=== PATIENT | female | born 1980 | race Caucasian/White ===

== ENCOUNTER 2018-11-21 05:38 | Emergency (ER) | payer MEDICAID ==
[~2018-11-21] VITALS: Ht 154.9 cm; Wt 83.1 kg
[2018-11-21] MEDS ORDERED: morphine 4 MG/ML inj SYRINge IV ONE ×2 (06:40→09:15)
[2018-11-21] MEDS ORDERED: normal saline 1000ML IV soln IVB ONE (06:40)
[2018-11-21 06:45] LABS: CLARITY,URINE CLOUDY (Clear); COLOR,URINE YELLOW (Yellow); GLUCOSE, URINE NEGATIVE (Neg); KETONES,URINE NEGATIVE (Neg); LEUKOCYTE ESTERASE ,URINE NEGATIVE (Neg); NITRITES, URINE NEGATIVE (Neg); OCCULT BLOOD,URINE LARGE (Neg); PROTEIN,URINE NEGATIVE (Neg); UROBILINOGEN,URINE 0.2 E.U/dL (0.2-1.0)
[2018-11-21 06:52] LABS: UA COLLECTION TYPE VOIDED
[2018-11-21 06:54] LABS: BASOPHILS % (AUTO) 0.5 % (0-1); EOSINOPHILS # (AUTO) 0.1 X10'3 (0-0.9); EOSINOPHILS % (AUTO) 1.4 % (0-6); HEMOGLOBIN 13.4 g/dl (12.0-16.0); LYMPHOCYTES # (AUTO) 0.9 X10'3 (1.1-4.8); MEAN CORPUSCULAR HEMOGLOBIN 30.1 PG (27.0-31.0); MEAN CORPUSCULAR HGB CONC 33.4 g/dL (33.0-36.5); MEAN CORPUSCULAR VOLUME 90.3 FL (78-98); MEAN PLATELET VOLUME 7.6 FL (7.4-10.4); MONOCYTES # (AUTO) 0.5 X10'3 (0-0.9); MONOCYTES % (AUTO) 8.7 % (2-12); NEUTROPHILS # (AUTO) 4.7 X10'3 (1.8-7.7); NEUTROPHILS % (AUTO) 75.4 % (42-75); PLATELET COUNT 255 X10'3 (140-440); RED BLOOD COUNT 4.43 X10'6 (4.20-5.60); RED CELL DISTRIBUTION WIDTH 14.1 % (11.5-14.5); WHITE BLOOD COUNT 6.2 X10'3 (4.5-11.0)
[2018-11-21 06:58] LABS: ALANINE AMINOTRANSFERASE 25 U/L (12-78); ALBUMIN 3.7 G/DL (3.4-5.0); ALKALINE PHOSPHATASE 50 IU/L (46-116); ANION GAP 8 (8-16); ASPARTATE AMINO TRANSFERASE 22 U/L (10-37); BILIRUBIN,TOTAL 0.4 MG/DL (0.1-1.0); BLOOD UREA NITROGEN 15 MG/DL (7-18); BUN/CREATININE RATIO 19.2 (6.6-38.0); CHLORIDE 105 MMOL/L (99-107); CREATININE 0.78 MG/DL (0.40-0.90); GLUCOSE 87 MG/DL (70-104); LIPASE 124 U/L (73-393); SODIUM 142 MMOL/L (135-145); TOTAL CARBON DIOXIDE 29.3 MMOL/L (24-32); TOTAL PROTEIN 7.3 G/DL (6.4-8.2); eGFR 84 ML/MIN
[2018-11-21 06:59] LABS: RBC,URINE TNTC /HPF (0-2); WBC,URINE 0-4 /HPF (0-4)
[2018-11-21 07:00] LABS: BACTERIA,URINE 2+ /HPF (Neg); MUCUS STRANDS MODERATE /LPF (Neg); SQUAMOUS EPITHELIAL CELL,UR MANY /LPF (FEW); YEAST FEW /HPF (NEGATIVE)
--- NOTE | 2018-11-21 08:24 | NUR ---
PT HAVING BEDSIDE ULTRASOUND DONE AT PRESENT TIME
[2018-11-21] MEDS ORDERED: CefTRIAXone 2gm/D5W 50ml 50 ML IV ONE (09:05)
[2018-11-21] MEDS ORDERED: phenazopyridine 100mg tablet PO ONE (09:05)
[2018-11-21] MEDS ORDERED: PHEN-824 PO (09:14)
[2018-11-21] MEDS ORDERED: CEPH250T PO (09:14)
[2018-11-21] MEDS ORDERED: HYDR-4383 PO (09:14)
[2018-11-21 10:13] VITALS: BP 124/84
== END 2018-11-21 10:14 | disposition home or self-care (01) ==
LOC: ER 05:39
DX: N30.90 Cystitis, unspecified without hematuria (principal); F15.90 Other stimulant use, unspecified, uncomplicated; Z90.49 Acquired absence of other specified parts of digestive tract; Z90.710 Acquired absence of both cervix and uterus; Z98.51 Tubal ligation status; Z56.0 Unemployment, unspecified; Z88.6 Allergy status to analgesic agent; Z88.8 Allergy status to other drugs, medicaments and biological substances
CPT/HCPCS: 36415; 76700; 80053; 81001; 83690; 85025; 96365; 96375; 96376; 99284; J0696; J2270; J7030

== ENCOUNTER 2019-08-03 08:31 | Emergency (ER) | payer MEDICAID ==
[~2019-08-03] VITALS: Ht 156.2 cm; Wt 79.5 kg
[~2019-08-03 08:31] MED LIST: HYDR-4383 PO; PHEN-824 PO
[2019-08-03] MEDS ORDERED: normal saline 1000ML IV soln IVB ONE (09:00)
[2019-08-03 09:09] LABS: BASOPHILS % (AUTO) 0.2 % (0-1); EOSINOPHILS % (AUTO) 0.3 % (0-6); HEMATOCRIT 39.3 % (35.0-45.0); HEMOGLOBIN 13.3 g/dl (12.0-16.0); LYMPHOCYTES # (AUTO) 0.7 X10'3 (1.1-4.8); LYMPHOCYTES % (AUTO) 10.5 % (21-51); MEAN CORPUSCULAR HEMOGLOBIN 31.8 PG (27.0-31.0); MEAN CORPUSCULAR HGB CONC 33.9 g/dL (33.0-36.5); MEAN CORPUSCULAR VOLUME 93.6 FL (78-98); MEAN PLATELET VOLUME 7.4 FL (7.4-10.4); MONOCYTES # (AUTO) 0.5 X10'3 (0-0.9); MONOCYTES % (AUTO) 7.4 % (2-12); NEUTROPHILS # (AUTO) 5.2 X10'3 (1.8-7.7); NEUTROPHILS % (AUTO) 81.6 % (42-75); PLATELET COUNT 301 X10'3 (140-440); RED CELL DISTRIBUTION WIDTH 13.5 % (11.5-14.5); WHITE BLOOD COUNT 6.4 X10'3 (4.5-11.0)
[2019-08-03 09:18] LABS: URINE HCG NEGATIVE (NEG)
[2019-08-03 09:19] LABS: CLARITY,URINE SLIGHTLY CLOUDY (Clear); COLOR,URINE YELLOW (Yellow); GLUCOSE, URINE NEGATIVE (Neg); KETONES,URINE NEGATIVE (Neg); LEUKOCYTE ESTERASE ,URINE SMALL (Neg); NITRITES, URINE NEGATIVE (Neg); OCCULT BLOOD,URINE LARGE (Neg); PROTEIN,URINE NEGATIVE (Neg); UROBILINOGEN,URINE 0.2 E.U/dL (0.2-1.0)
[2019-08-03 09:21] LABS: UA COLLECTION TYPE CLN CATCH MIDSTREAM
[2019-08-03 09:24] LABS: BACTERIA,URINE 2+ /HPF (Neg); SQUAMOUS EPITHELIAL CELL,UR MANY /LPF (FEW); WBC,URINE 20-30 /HPF (0-4)
[2019-08-03 09:24] LABS: ALANINE AMINOTRANSFERASE 21 U/L (12-78); ALKALINE PHOSPHATASE 59 IU/L (46-116); ANION GAP 11 (8-16); ASPARTATE AMINO TRANSFERASE 25 U/L (10-37); BILIRUBIN,TOTAL 0.4 MG/DL (0.1-1.0); BLOOD UREA NITROGEN 9 MG/DL (7-18); BUN/CREATININE RATIO 11.5 (6.6-38.0); CALCIUM 8.8 MG/DL (8.5-10.1); CHLORIDE 105 MMOL/L (99-107); CREATININE 0.78 MG/DL (0.40-0.90); GLUCOSE 85 MG/DL (70-104); LIPASE 107 U/L (73-393); POTASSIUM 3.5 MMOL/L (3.5-5.1); SODIUM 143 MMOL/L (135-145); TOTAL CARBON DIOXIDE 26.7 MMOL/L (24-32); TOTAL PROTEIN 7.9 G/DL (6.4-8.2); eGFR 83 ML/MIN
[2019-08-03 09:25] LABS: RBC,URINE 50-100 /HPF (0-2)
--- NOTE | 2019-08-03 09:35 | NUR ---
PT TO CT
--- NOTE | 2019-08-03 09:47 | NUR ---
2 IV ATTEMPS NO SUCCESS. YINKA COLEMAN NOTIFIED. OK FOR PT TO DRINK 1,000 ML WATER.
[2019-08-03] MEDS ORDERED: ketorolac trometh inj. 60 MG/2 ML VIAL IM ONE (09:50)
[2019-08-03] MEDS ORDERED: HYDROcodone/acetaminophen 10/325mg tab PO ONE (09:55)
[2019-08-03] MEDS ORDERED: HYDR-4383 PO (10:42)
[2019-08-03] MEDS ORDERED: CEPH250T PO (10:42)
[2019-08-03] MEDS ORDERED: FLO0.4C PO (10:42)
[2019-08-03 10:55] VITALS: BP 133/78
== END 2019-08-03 10:56 | disposition home or self-care (01) ==
LOC: ER 08:31
DX: N39.0 Urinary tract infection, site not specified (principal); F32.9 Major depressive disorder, single episode, unspecified; F15.90 Other stimulant use, unspecified, uncomplicated; Z87.442 Personal history of urinary calculi; Z90.49 Acquired absence of other specified parts of digestive tract; Z98.890 Other specified postprocedural states; Z90.710 Acquired absence of both cervix and uterus; Z98.51 Tubal ligation status; Z56.0 Unemployment, unspecified; Z88.8 Allergy status to other drugs, medicaments and biological substances; Z79.899 Other long term (current) drug therapy
CPT/HCPCS: 36415; 74176; 80053; 81001; 81025; 83690; 85025; 99284; J1885

== ENCOUNTER 2019-08-06 05:28 | Inpatient (IN) | payer MEDICAID ==
[~2019-08-06] VITALS: Ht 154.9 cm; Wt 175.0 kg
[~2019-08-06 05:28] MED LIST changes: +CEPH250T PO; +FLO0.4C PO
[2019-08-06] MEDS ORDERED: ondansetron/PF 4mg/2ml inj IV ONE ×2 (05:50→07:45)
[2019-08-06] MEDS: morphine 4 MG/ML inj SYRINge IV PRN ×2 (06:16→08:47)
[2019-08-06 06:43] LABS: BASOPHILS % (AUTO) 0.7 % (0-1); EOSINOPHILS % (AUTO) 0.6 % (0-6); HEMATOCRIT 37.4 % (35.0-45.0); HEMOGLOBIN 12.9 g/dl (12.0-16.0); LYMPHOCYTES # (AUTO) 0.8 X10'3 (1.1-4.8); LYMPHOCYTES % (AUTO) 14.2 % (21-51); MEAN CORPUSCULAR HEMOGLOBIN 31.5 PG (27.0-31.0); MEAN CORPUSCULAR HGB CONC 34.4 g/dL (33.0-36.5); MEAN CORPUSCULAR VOLUME 91.7 FL (78-98); MEAN PLATELET VOLUME 7.4 FL (7.4-10.4); MONOCYTES # (AUTO) 0.5 X10'3 (0-0.9); MONOCYTES % (AUTO) 8.2 % (2-12); NEUTROPHILS # (AUTO) 4.2 X10'3 (1.8-7.7); NEUTROPHILS % (AUTO) 76.3 % (42-75); PLATELET COUNT 303 X10'3 (140-440); RED BLOOD COUNT 4.08 X10'6 (4.20-5.60); RED CELL DISTRIBUTION WIDTH 13.6 % (11.5-14.5); WHITE BLOOD COUNT 5.5 X10'3 (4.5-11.0)
[2019-08-06] MEDS ORDERED: HYDROcodone/acetaminophen 10/325mg tab PO ONE (06:45)
[2019-08-06 07:02] LABS: ALANINE AMINOTRANSFERASE 24 U/L (12-78); ALBUMIN 4.1 G/DL (3.4-5.0); ALBUMIN/GLOBULIN RATIO 1.1 (1.1-1.5); ALKALINE PHOSPHATASE 54 IU/L (46-116); ANION GAP 8 (8-16); ASPARTATE AMINO TRANSFERASE 22 U/L (10-37); BILIRUBIN,TOTAL 0.6 MG/DL (0.1-1.0); BLOOD UREA NITROGEN 12 MG/DL (7-18); BUN/CREATININE RATIO 13.5 (6.6-38.0); CHLORIDE 105 MMOL/L (99-107); CREATININE 0.89 MG/DL (0.40-0.90); GLUCOSE 88 MG/DL (70-104); LIPASE 84 U/L (73-393); POTASSIUM 3.4 MMOL/L (3.5-5.1); SODIUM 142 MMOL/L (135-145); TOTAL CARBON DIOXIDE 29.2 MMOL/L (24-32); TOTAL PROTEIN 7.7 G/DL (6.4-8.2); eGFR 71 ML/MIN
[2019-08-06 07:39] LABS: CLARITY,URINE CLEAR (Clear); COLOR,URINE YELLOW (Yellow); GLUCOSE, URINE NEGATIVE (Neg); KETONES,URINE NEGATIVE (Neg); LEUKOCYTE ESTERASE ,URINE NEGATIVE (Neg); NITRITES, URINE NEGATIVE (Neg); OCCULT BLOOD,URINE LARGE (Neg); PH,URINE 6.5 (4.8-8.0); PROTEIN,URINE TRACE mg/dl (Neg); UROBILINOGEN,URINE 0.2 E.U/dL (0.2-1.0)
[2019-08-06] MEDS ORDERED: fentaNYL/PF 50MCG/1 ML 2ML syringe IV ONE (07:45)
[2019-08-06 07:48] LABS: UA COLLECTION TYPE CLN CATCH MIDSTREAM
[2019-08-06 07:56] LABS: SQUAMOUS EPITHELIAL CELL,UR MANY /LPF (FEW)
[2019-08-06 07:58] LABS: YEAST FEW /HPF (NEGATIVE)
[2019-08-06 07:59] LABS: BACTERIA,URINE FEW /HPF (Neg); WBC,URINE 0-4 /HPF (0-4)
[2019-08-06] MEDS ORDERED: morphine 2 MG/ML inj. syringe IV PRN (08:45)
[2019-08-06] MEDS ORDERED: acetaminophen 325mg tablet PO PRN ×2 (08:45)
[2019-08-06] MEDS ORDERED: potassium CL 10mEq/100ml bag 100 ML IV PRN ×2 (08:45)
[2019-08-06] MEDS ORDERED: magnesium hydroxide 30ml (MOM) UD suspension PO PRN (08:45)
[2019-08-06] MEDS ORDERED: magnesium Cl slow-release 64mg tablet PO PRN (08:45)
[2019-08-06] MEDS ORDERED: magnesium 2GM in 50ml NS 50 ML IV PRN (08:45)
[2019-08-06] MEDS ORDERED: magnesium 4gm in 100ml NS 100 ML IV PRN (08:45)
[2019-08-06] MEDS ORDERED: potassium Cl 20 mEq SR tablet PO PRN (08:45)
[2019-08-06] MEDS ORDERED: mag hydrox/Alum hydrox/simeth 30ml oral suspension PO PRN (08:45)
--- NOTE | 2019-08-06 08:54 | NUR ---
Wong roa in EDM - 08/06/19 at 0855 by LUKASZ PT BEING DISCHARGED. WAKE PT. INSTRUCT PT TO CALL FOR RIDE HOME. PT USING HER CELL PHONE TO CALL NOW.
--- NOTE | 2019-08-06 09:17 | NUR ---
ATTEMPTED TO CALL REPORT. RN IN PT ROOM. WILL CALL BACK
--- NOTE | 2019-08-06 09:52 | NUR ---
Patient in room [facility]. I have received report from Mario OATES and had the opportunity to ask questions and assume patient care.
[2019-08-06] MEDS: normal saline 1000ml 1,000 ML IV SCH ×2 (10:03→10:04)
[2019-08-06] MEDS: potassium Cl 20 mEq SR tablet PO PRN ×3 (10:03→20:00)
[2019-08-06] MEDS: HYDROcodone/acetaminophen 5mg/325mg tablet PO PRN ×2 (10:14→17:37)
[2019-08-06] MEDS ORDERED: CEPH250C2 PO (10:33)
[2019-08-06] MEDS ORDERED: HYDR-3965 PO (10:33)
[2019-08-06] MEDS ORDERED: FLO0.4C PO (10:33)
[2019-08-06 10:35] VITALS: BP 129/84
[2019-08-06] MEDS: ondansetron/PF 4mg/2ml inj IV PRN ×2 (10:54→17:38)
[2019-08-06 11:00] VITALS: BP 122/68
[2019-08-06] MEDS ORDERED: tamsulosin 0.4mg capsule PO SCH (11:05)
[2019-08-06] MEDS: morphine 2 MG/ML inj. syringe IV PRN ×2 (14:08→20:00)
[2019-08-06 18:00] VITALS: BP 92/53
--- NOTE | 2019-08-06 18:36 | NUR ---
Patient in room [facility]. I have received report from JOSEPH OATES and had the opportunity to ask questions and assume patient care. Patient is resting in no apparent distress.
--- NOTE | 2019-08-06 19:33 | NUR ---
Problems reprioritized. Patient report given, questions answered & plan of care reviewed with PRUDENCE RN.
[2019-08-06] MEDS: K and/or MAG REPLACEMENT MC SCH (20:00)
[2019-08-06] MEDS: tamsulosin 0.4mg capsule PO SCH (20:33)
[2019-08-07] VITALS: BP 93/57
[2019-08-07] MEDS: morphine 2 MG/ML inj. syringe IV PRN ×5 (00:19→19:52)
[2019-08-07 04:55] LABS: ALBUMIN 3.1 G/DL (3.4-5.0); ANION GAP 9 (8-16); BLOOD UREA NITROGEN 8 MG/DL (7-18); BUN/CREATININE RATIO 13.1 (6.6-38.0); CALCIUM 8.1 MG/DL (8.5-10.1); CHLORIDE 107 MMOL/L (99-107); CREATININE 0.61 MG/DL (0.40-0.90); GLUCOSE 79 MG/DL (70-104); MAGNESIUM 1.8 MG/DL (1.5-2.4); POTASSIUM 3.4 MMOL/L (3.5-5.1); SODIUM 143 MMOL/L (135-145); TOTAL CARBON DIOXIDE 27.4 MMOL/L (24-32); eGFR > 90 ML/MIN
--- NOTE | 2019-08-07 06:29 | NUR ---
Problems reprioritized. Patient report given, questions answered & plan of care reviewed with Cary OATES.
[2019-08-07] MEDS: HYDROcodone/acetaminophen 5mg/325mg tablet PO PRN ×3 (06:56→21:40)
[2019-08-07 07:35] LABS: BASOPHILS % (AUTO) 0.4 % (0-1); EOSINOPHILS % (AUTO) 0.7 % (0-6); HEMOGLOBIN 11.5 g/dl (12.0-16.0); LYMPHOCYTES # (AUTO) 0.8 X10'3 (1.1-4.8); LYMPHOCYTES % (AUTO) 18.3 % (21-51); MEAN CORPUSCULAR HEMOGLOBIN 31.6 PG (27.0-31.0); MEAN CORPUSCULAR HGB CONC 33.9 g/dL (33.0-36.5); MEAN CORPUSCULAR VOLUME 93.3 FL (78-98); MEAN PLATELET VOLUME 7.6 FL (7.4-10.4); MONOCYTES # (AUTO) 0.3 X10'3 (0-0.9); MONOCYTES % (AUTO) 8.2 % (2-12); NEUTROPHILS % (AUTO) 72.4 % (42-75); PLATELET COUNT 249 X10'3 (140-440); RED BLOOD COUNT 3.65 X10'6 (4.20-5.60); RED CELL DISTRIBUTION WIDTH 13.6 % (11.5-14.5); WHITE BLOOD COUNT 4.2 X10'3 (4.5-11.0)
[2019-08-07 08:00] VITALS: BP 100/63
[2019-08-07] MEDS ORDERED: tamsulosin 0.4mg capsule PO SCH (08:00)
[2019-08-07] MEDS: K and/or MAG REPLACEMENT MC SCH ×2 (08:00→18:55)
[2019-08-07] MEDS: potassium Cl 20 mEq SR tablet PO PRN ×3 (08:14→23:03)
[2019-08-07 11:00] VITALS: BP 101/61
[2019-08-07 18:00] VITALS: BP 111/59
--- NOTE | 2019-08-07 18:30 | NUR ---
Problems reprioritized. Patient report given, questions answered & plan of care reviewed with Kandace OATES.
--- NOTE | 2019-08-07 18:51 | NUR ---
Patient in room [facility]. I have received report from Cary walters and had the opportunity to ask questions and assume patient care.
[2019-08-07] MEDS: tamsulosin 0.4mg capsule PO SCH (21:35)
[2019-08-07 23:46] VITALS: BP 108/64
[2019-08-08] VITALS (18 sets, daily range): BP systolic 105–133; BP diastolic 54–99
[2019-08-08] MEDS: morphine 2 MG/ML inj. syringe IV PRN ×4 (00:47→14:50)
[2019-08-08 05:28] LABS: BASOPHILS % (AUTO) 0.6 % (0-1); EOSINOPHILS # (AUTO) 0.1 X10'3 (0-0.9); EOSINOPHILS % (AUTO) 1.4 % (0-6); HEMATOCRIT 31.9 % (35.0-45.0); HEMOGLOBIN 11.1 g/dl (12.0-16.0); MEAN CORPUSCULAR HEMOGLOBIN 32.4 PG (27.0-31.0); MEAN CORPUSCULAR HGB CONC 34.7 g/dL (33.0-36.5); MEAN CORPUSCULAR VOLUME 93.4 FL (78-98); MEAN PLATELET VOLUME 7.5 FL (7.4-10.4); MONOCYTES # (AUTO) 0.4 X10'3 (0-0.9); MONOCYTES % (AUTO) 9.4 % (2-12); NEUTROPHILS # (AUTO) 2.8 X10'3 (1.8-7.7); NEUTROPHILS % (AUTO) 65.6 % (42-75); PLATELET COUNT 242 X10'3 (140-440); RED BLOOD COUNT 3.42 X10'6 (4.20-5.60); RED CELL DISTRIBUTION WIDTH 13.3 % (11.5-14.5); WHITE BLOOD COUNT 4.3 X10'3 (4.5-11.0)
[2019-08-08 05:39] LABS: ALBUMIN 3.1 G/DL (3.4-5.0); ANION GAP 6 (8-16); BLOOD UREA NITROGEN 6 MG/DL (7-18); CALCIUM 8.1 MG/DL (8.5-10.1); CHLORIDE 109 MMOL/L (99-107); GLUCOSE 80 MG/DL (70-104); MAGNESIUM 1.8 MG/DL (1.5-2.4); POTASSIUM 3.9 MMOL/L (3.5-5.1); SODIUM 142 MMOL/L (135-145); TOTAL CARBON DIOXIDE 26.7 MMOL/L (24-32); eGFR > 90 ML/MIN
--- NOTE | 2019-08-08 06:32 | NUR ---
Problems reprioritized. Patient report given, questions answered & plan of care reviewed with Birdie OATES.
--- NOTE | 2019-08-08 06:38 | NUR ---
I have reviewed and agree with all interventions, assessments performed and documented by LASHON Brown.
--- NOTE | 2019-08-08 06:43 | NUR ---
Patient in room [facility]. I have received report from Kandace/Kevin OATES and had the opportunity to ask questions and assume patient care.
[2019-08-08] MEDS: HYDROcodone/acetaminophen 5mg/325mg tablet PO PRN ×3 (07:12→17:49)
[2019-08-08] MEDS: K and/or MAG REPLACEMENT MC SCH ×2 (08:00→20:00)
[2019-08-08] MEDS ORDERED: ringers solution, lacted 1,000 ML IV ONE (08:13)
[2019-08-08 08:59] LABS: PARTIAL THROMBOPLASTIN TIME 28 SECONDS (22-32)
[2019-08-08 09:02] LABS: ALANINE AMINOTRANSFERASE 20 U/L (12-78); ALBUMIN 3.4 G/DL (3.4-5.0); ALBUMIN/GLOBULIN RATIO 1.1 (1.1-1.5); ALKALINE PHOSPHATASE 47 IU/L (46-116); ANION GAP 5 (8-16); ASPARTATE AMINO TRANSFERASE 19 U/L (10-37); BILIRUBIN,TOTAL 0.4 MG/DL (0.1-1.0); BLOOD UREA NITROGEN 6 MG/DL (7-18); BUN/CREATININE RATIO 9.2 (6.6-38.0); CALCIUM 8.3 MG/DL (8.5-10.1); CHLORIDE 109 MMOL/L (99-107); CREATININE 0.65 MG/DL (0.40-0.90); GLUCOSE 88 MG/DL (70-104); POTASSIUM 4.2 MMOL/L (3.5-5.1); SODIUM 141 MMOL/L (135-145); TOTAL CARBON DIOXIDE 27.3 MMOL/L (24-32); TOTAL PROTEIN 6.6 G/DL (6.4-8.2); eGFR > 90 ML/MIN
[2019-08-08] MEDS ORDERED: sevoflurane 250ml liquid IH ONE (15:54)
--- NOTE | 2019-08-08 15:57 | NUR ---
Patient transferred to OR at 1450.
[2019-08-08] MEDS ORDERED: fentaNYL/PF 50MCG/1 ML 2ML syringe ONE (16:01)
[2019-08-08] MEDS ORDERED: midazolam 2 mg/2 ml injection ONE (16:01)
[2019-08-08] MEDS ORDERED: ringers solution, lacted 1,000 ML IV SCH (16:24)
[2019-08-08] MEDS ORDERED: proCHLORperazine 10 MG/2 ml inj IV PRN ×2 (16:25→23:20)
[2019-08-08] MEDS ORDERED: ondansetron/PF 4mg/2ml inj IV PRN (16:25)
[2019-08-08] MEDS ORDERED: morphine 4 MG/ML inj SYRINge IV PRN ×2 (16:25)
[2019-08-08] MEDS ORDERED: meperidine/PF 25mg/ml syringe IV PRN ×2 (16:25)
[2019-08-08] MEDS ORDERED: ceFAZolin 1000mg inj ONE ×2 (16:36)
[2019-08-08] MEDS ORDERED: propofol inj 20 ML IV ONE (16:36)
[2019-08-08] MEDS: meperidine/PF 25mg/ml syringe IV PRN ×4 (16:50→17:26)
--- NOTE | 2019-08-08 16:50 | NUR ---
Received from OR via BED , accompanied by Anesthesiologist and report given by Anesthesiolgist. PATIENT A&OX4, C/O PAIN LEFT SIDE SEE EMAR, V/S WNL, CSM INTACT, 20G PIV LUE. NO DRESSINGS NO DRAINAGE OBSERVED AT CYSTO SITE.
--- NOTE | 2019-08-08 17:30 | NUR ---
PATIENT A&OX4, C/O PAIN LEFT SIDE 12/08 SEE EMAR, V/S WNL, CSM INTACT, 20G PIV LUE. NO DRESSINGS NO DRAINAGE OBSERVED AT CYSTO SITE. pATIENT TAKEN TO SURGICAL ROOM AND HOOKED UP TO MONITORS IN ROOM AND PULSE OX, CALL LIGHT GIVEN TO PATIENT AND Problems reprioritized. Patient report given , questions answered & plan of care reviewed RECIEVING SONG PLUGGER WHO HAS TAKEN OVER PATIENT CARE.
--- NOTE | 2019-08-08 18:05 | NUR ---
pt arrive from OR at 1730. A&O x3. c/o 06/09 pain. [place] PO given. tolerating ice water well.
[2019-08-08] MEDS: ondansetron/PF 4mg/2ml inj IV PRN (19:08)
--- NOTE | 2019-08-08 19:12 | NUR ---
Problems reprioritized. Patient report given, questions answered & plan of care reviewed with Pat RN. Patient continues to c/o pain 06/09. Phone call out to Dr Chapman for Pain medication ordsers. waiting on response.
[2019-08-08] MEDS ORDERED: HYDROmorphone 1 mg/ml syringe IV ONE (19:40)
--- NOTE | 2019-08-08 19:40 | NUR ---
@ 1930 Pt in room sitting on edge of bed in severe pain, states left back and abd pain. pt is crying, sl diaphoretic, rn on phone paging Dr. Chapman. Pt vss, cool compress to forehead, family at bedside. Pt decliens morphine, states does not work for her. [address] Chapman for dilauded 2mg iv. Addendum: 08/08/19 at 2256 by Chidi Seals RN Amended: Links added.
[2019-08-08] MEDS ORDERED: HYDROmorphone inj. 0.5 MG/0.5 ML DISP.SYRIN IV PRN (19:50)
--- NOTE | 2019-08-08 20:00 | NUR ---
Pt received dilauded iv, back to bed poc with pillows, ice pack to left side. Starting to feel relief. vss.
[2019-08-08] MEDS: HYDROmorphone 1 mg/ml syringe IV PRN ×2 (21:49→23:49)
[2019-08-08] MEDS: tamsulosin 0.4mg capsule PO SCH (22:50)
[2019-08-08] MEDS ORDERED: LORazepam 2 mg/ml vial IV ONE (23:20)
[2019-08-08] MEDS: heparin, porcine 5000 units/ml vial SQ SCH (23:53)
[2019-08-09] MEDS: HYDROmorphone 1 mg/ml syringe IV PRN ×5 (01:47→10:07)
[2019-08-09 04:00] VITALS: BP 114/72
[2019-08-09 05:09] LABS: EOSINOPHILS % (AUTO) 0 % (0-6); HEMOGLOBIN 12.6 g/dl (12.0-16.0); LYMPHOCYTES # (AUTO) 0.5 X10'3 (1.1-4.8)
[2019-08-09 05:12] LABS: BASOPHILS % (AUTO) 0.2 % (0-1); HEMATOCRIT 36.8 % (35.0-45.0); LYMPHOCYTES % (AUTO) 3.1 % (21-51); MEAN CORPUSCULAR HEMOGLOBIN 31.6 PG (27.0-31.0); MEAN CORPUSCULAR HGB CONC 34.1 g/dL (33.0-36.5); MEAN CORPUSCULAR VOLUME 92.7 FL (78-98); MEAN PLATELET VOLUME 7.8 FL (7.4-10.4); MONOCYTES # (AUTO) 0.7 X10'3 (0-0.9); MONOCYTES % (AUTO) 4.2 % (2-12); NEUTROPHILS # (AUTO) 14.3 X10'3 (1.8-7.7); NEUTROPHILS % (AUTO) 92.5 % (42-75); PLATELET COUNT 198 X10'3 (140-440); RED BLOOD COUNT 3.98 X10'6 (4.20-5.60); RED CELL DISTRIBUTION WIDTH 13.3 % (11.5-14.5); WHITE BLOOD COUNT 15.5 X10'3 (4.5-11.0)
[2019-08-09 05:31] LABS: ALBUMIN 3.8 G/DL (3.4-5.0); ANION GAP 11 (8-16); BLOOD UREA NITROGEN 9 MG/DL (7-18); BUN/CREATININE RATIO 11.3 (6.6-38.0); CALCIUM 8.6 MG/DL (8.5-10.1); CHLORIDE 103 MMOL/L (99-107); GLUCOSE 96 MG/DL (70-104); MAGNESIUM 1.7 MG/DL (1.5-2.4); POTASSIUM 4.2 MMOL/L (3.5-5.1); SODIUM 138 MMOL/L (135-145); TOTAL CARBON DIOXIDE 24.3 MMOL/L (24-32); eGFR 81 ML/MIN
[2019-08-09 07:30] VITALS: BP 111/70
[2019-08-09] MEDS: heparin, porcine 5000 units/ml vial SQ SCH (07:55)
[2019-08-09] MEDS: K and/or MAG REPLACEMENT MC SCH (08:00)
[2019-08-09] MEDS: ondansetron/PF 4mg/2ml inj IV PRN (10:12)
[2019-08-09] MEDS ORDERED: CEFD300C3 PO (10:27)
[2019-08-09 11:27] VITALS: BP 110/68
--- NOTE | 2019-08-09 14:45 | NUR ---
Patient stable and appropriate for discharge home. IV removed. All belongings taken from room. New prescription transmitted to preferred pharmacy.
== END 2019-08-09 14:15 | disposition home or self-care (01) | DRG 446 ==
LOC: ER 05:29 → ED HOLD 08:58 → SUR 3N 09:50 → OBSVTOIN 08-07 08:58
PROVIDERS: ADMIT Hospitalist; ATTEND Family Medicine
PROC: BT171ZZ Fluoroscopy of Left Ureter using Low Osmolar Contrast (ICD-10-PCS; 2019-08-08)
PROC: 0TC78ZZ Extirpation of Matter from Left Ureter, Via Natural or Artificial Opening Endoscopic (ICD-10-PCS; principal; 2019-08-08 15:54)
DX: N13.2 Hydronephrosis with renal and ureteral calculous obstruction (principal); D68.51 Activated protein C resistance; F15.10 Other stimulant abuse, uncomplicated; F32.9 Major depressive disorder, single episode, unspecified; Z86.711 Personal history of pulmonary embolism; Z86.718 Personal history of other venous thrombosis and embolism; Z87.891 Personal history of nicotine dependence; Z90.49 Acquired absence of other specified parts of digestive tract; Z90.710 Acquired absence of both cervix and uterus; Z88.8 Allergy status to other drugs, medicaments and biological substances; Z98.51 Tubal ligation status; Z79.899 Other long term (current) drug therapy
CPT/HCPCS: 36415; 76000; 80048; 80053; 81001; 82948; 83690; 83735; 85025; 85610; 85730; 87081; 99285; A4402; A4618; A7000; C1758; C1769; G0378; J0690; J0780; J1170; J1644; J2175; J2250; J2270; J2405; J2704; J3010; J7030; J7120

== ENCOUNTER 2019-08-11 08:40 | Emergency (ER) | payer MEDICAID ==
[~2019-08-11] VITALS: Ht 154.9 cm; Wt 80.0 kg
[~2019-08-11 08:40] MED LIST changes: +CEFD300C3 PO; -CEPH250T PO; +HYDR-3965 PO; -HYDR-4383 PO; -PHEN-824 PO
[2019-08-11] MEDS ORDERED: morphine 4 MG/ML inj SYRINge IM ONE (09:40)
[2019-08-11 09:42] LABS: CLARITY,URINE SLIGHTLY CLOUDY (Clear); COLOR,URINE YELLOW (Yellow); GLUCOSE, URINE NEGATIVE (Neg); KETONES,URINE 15 mg/dl (Neg); LEUKOCYTE ESTERASE ,URINE SMALL (Neg); NITRITES, URINE NEGATIVE (Neg); OCCULT BLOOD,URINE LARGE (Neg); PROTEIN,URINE NEGATIVE (Neg); UA COLLECTION TYPE CLN CATCH MIDSTREAM; UROBILINOGEN,URINE 0.2 E.U/dL (0.2-1.0)
[2019-08-11 09:47] LABS: URINE HCG NEGATIVE (NEG)
[2019-08-11 09:48] LABS: MUCUS STRANDS MODERATE /LPF (Neg); SQUAMOUS EPITHELIAL CELL,UR MANY /LPF (FEW)
[2019-08-11 09:50] LABS: BACTERIA,URINE FEW /HPF (Neg); YEAST FEW /HPF (NEGATIVE)
[2019-08-11] MEDS ORDERED: HYDR-3965 PO (10:30)
[2019-08-11 11:07] VITALS: BP 138/80
== END 2019-08-11 11:05 | disposition home or self-care (01) ==
LOC: ER 08:41
DX: N23 Unspecified renal colic (principal); F32.9 Major depressive disorder, single episode, unspecified; F15.90 Other stimulant use, unspecified, uncomplicated; Z87.442 Personal history of urinary calculi; Z90.49 Acquired absence of other specified parts of digestive tract; Z98.890 Other specified postprocedural states; Z90.710 Acquired absence of both cervix and uterus; Z98.51 Tubal ligation status; Z56.0 Unemployment, unspecified; Z88.8 Allergy status to other drugs, medicaments and biological substances; Z79.899 Other long term (current) drug therapy
CPT/HCPCS: 74176; 81001; 81025; 96372; 99285; J2270; 99284

== ENCOUNTER 2020-05-21 07:37 | Emergency (ER) | payer MEDICAID ==
[~2020-05-21] VITALS: Ht 154.9 cm; Wt 97.7 kg
[~2020-05-21 07:37] MED LIST changes: -CEFD300C3 PO
[2020-05-21] MEDS ORDERED: HYDROcodone/acetaminophen 5mg/325mg tablet PO ONE (08:10)
[2020-05-21] MEDS ORDERED: ondansetron 4mg rapidly disintigrating tab PO ONE (08:10)
[2020-05-21 08:20] LABS: URINE HCG NEGATIVE (NEG)
[2020-05-21 08:22] LABS: URINE AMPHETAMINE SCREEN NEGATIVE (Neg); URINE BARBITUATE SCREEN NEGATIVE (Neg); URINE BENZODIAZEPINES SCREEN NEGATIVE (Neg); URINE CANNABINOID SCREEN NEGATIVE (Neg); URINE COCAINE SCREEN NEGATIVE (Neg); URINE METHADONE SCREEN NEGATIVE (Neg); URINE OPIATE SCREEN POSITIVE (Neg); URINE PHENCYCLIDINE SCREEN NEGATIVE (Neg)
[2020-05-21 08:26] LABS: COLOR,URINE STRAW (Yellow); GLUCOSE, URINE NEGATIVE (Neg); KETONES,URINE NEGATIVE (Neg); LEUKOCYTE ESTERASE ,URINE SMALL (Neg); NITRITES, URINE NEGATIVE (Neg); OCCULT BLOOD,URINE NEGATIVE (Neg); PH,URINE 6.5 (4.8-8.0); PROTEIN,URINE NEGATIVE (Neg); UROBILINOGEN,URINE 0.2 E.U/dL (0.2-1.0)
[2020-05-21 08:29] LABS: BASOPHILS % (AUTO) 0.5 % (0-1); EOSINOPHILS % (AUTO) 0.3 % (0-6); HEMATOCRIT 38.6 % (35.0-45.0); LYMPHOCYTES # (AUTO) 0.7 X10'3 (1.1-4.8); LYMPHOCYTES % (AUTO) 9.5 % (21-51); MEAN CORPUSCULAR HEMOGLOBIN 31.7 PG (27.0-31.0); MEAN CORPUSCULAR HGB CONC 33.7 g/dL (33.0-36.5); MEAN PLATELET VOLUME 7.2 FL (7.4-10.4); MONOCYTES # (AUTO) 0.4 X10'3 (0-0.9); MONOCYTES % (AUTO) 5.8 % (2-12); NEUTROPHILS # (AUTO) 6.4 X10'3 (1.8-7.7); NEUTROPHILS % (AUTO) 83.9 % (42-75); PLATELET COUNT 306 X10'3 (140-440); RED BLOOD COUNT 4.11 X10'6 (4.20-5.60); RED CELL DISTRIBUTION WIDTH 13.9 % (11.5-14.5); WHITE BLOOD COUNT 7.6 X10'3 (4.5-11.0)
[2020-05-21 08:43] LABS: CLARITY,URINE SLIGHTLY CLOUDY (Clear); UA COLLECTION TYPE CLN CATCH MIDSTREAM
[2020-05-21 08:44] LABS: RBC,URINE NONE SEEN /HPF (0-2); SQUAMOUS EPITHELIAL CELL,UR MODERATE /LPF (FEW); WBC,URINE 20-30 /HPF (0-4)
[2020-05-21 08:45] LABS: BACTERIA,URINE 1+ /HPF (Neg); WBC CLUMPS,URINE FEW /HPF (NEGATIVE)
[2020-05-21 08:52] LABS: ALANINE AMINOTRANSFERASE 28 U/L (12-78); ALBUMIN 3.7 G/DL (3.4-5.0); ALKALINE PHOSPHATASE 41 IU/L (46-116); ANION GAP 7 (8-16); ASPARTATE AMINO TRANSFERASE 21 U/L (10-37); BILIRUBIN,TOTAL 0.3 MG/DL (0.1-1.0); BLOOD UREA NITROGEN 5 MG/DL (7-18); BUN/CREATININE RATIO 6.6 (6.6-38.0); CALCIUM 8.6 MG/DL (8.5-10.1); CHLORIDE 105 MMOL/L (99-107); CREATININE 0.76 MG/DL (0.40-0.90); GLUCOSE 63 MG/DL (70-104); LIPASE 67 U/L (73-393); POTASSIUM 3.5 MMOL/L (3.5-5.1); SODIUM 142 MMOL/L (135-145); TOTAL CARBON DIOXIDE 30.4 MMOL/L (24-32); TOTAL PROTEIN 7.5 G/DL (6.4-8.2); eGFR 86 ML/MIN
[2020-05-21] MEDS ORDERED: morphine 4 MG/ML inj SYRINge IV ONE (09:05)
[2020-05-21] MEDS ORDERED: CefTRIAXone 2gm/D5W 50ml 50 ML IV ONE (09:05)
[2020-05-21] MEDS ORDERED: CIPR-230 PO (10:34)
[2020-05-21] MEDS ORDERED: HYDR-3965 PO (10:34)
[2020-05-21 10:50] VITALS: BP 117/81
== END 2020-05-21 10:51 | disposition home or self-care (01) ==
LOC: ER 07:37
DX: N10 Acute pyelonephritis (principal); F32.9 Major depressive disorder, single episode, unspecified; F15.90 Other stimulant use, unspecified, uncomplicated; Z90.49 Acquired absence of other specified parts of digestive tract; Z90.710 Acquired absence of both cervix and uterus; Z98.51 Tubal ligation status; Z98.890 Other specified postprocedural states; Z87.442 Personal history of urinary calculi; Z56.0 Unemployment, unspecified; Z88.8 Allergy status to other drugs, medicaments and biological substances; Z79.899 Other long term (current) drug therapy
CPT/HCPCS: 36415; 74176; 80053; 80305; 81001; 81025; 83690; 85025; 87088; 96365; 96366; 96375; 99285; J0696; J2270

== ENCOUNTER 2020-09-16 10:34 | Emergency (ER) | payer MEDICAID ==
[~2020-09-16] VITALS: Ht 154.9 cm; Wt 76.8 kg
[2020-09-16 11:05] LABS: CLARITY,URINE SLIGHTLY CLOUDY (Clear); COLOR,URINE STRAW (Yellow); GLUCOSE, URINE NEGATIVE (Neg); KETONES,URINE NEGATIVE (Neg); LEUKOCYTE ESTERASE ,URINE NEGATIVE (Neg); NITRITES, URINE NEGATIVE (Neg); OCCULT BLOOD,URINE NEGATIVE (Neg); PROTEIN,URINE NEGATIVE (Neg); URINE HCG NEGATIVE (NEG); UROBILINOGEN,URINE 0.2 E.U/dL (0.2-1.0)
[2020-09-16] MEDS ORDERED: ondansetron/PF 4mg/2ml inj IV ONE (11:05)
[2020-09-16] MEDS ORDERED: normal saline 1000ML IV soln IVB ONE (11:05)
[2020-09-16] MEDS ORDERED: morphine 4 MG/ML inj SYRINge IV PRN (11:05)
[2020-09-16 11:08] LABS: UA COLLECTION TYPE CLN CATCH MIDSTREAM
[2020-09-16 11:11] LABS: BACTERIA,URINE FEW /HPF (Neg); MUCUS STRANDS FEW /LPF (Neg); RBC,URINE NONE SEEN /HPF (0-2); SQUAMOUS EPITHELIAL CELL,UR MANY /LPF (FEW); WBC,URINE 0-4 /HPF (0-4)
[2020-09-16 11:47] LABS: BASOPHILS % (AUTO) 0.3 % (0-1); EOSINOPHILS % (AUTO) 0.3 % (0-6); HEMATOCRIT 37.4 % (35.0-45.0); HEMOGLOBIN 12.7 g/dl (12.0-16.0); LYMPHOCYTES % (AUTO) 14.7 % (21-51); MEAN CORPUSCULAR HEMOGLOBIN 32.4 PG (27.0-31.0); MEAN CORPUSCULAR HGB CONC 33.9 g/dL (33.0-36.5); MEAN CORPUSCULAR VOLUME 95.5 FL (78-98); MEAN PLATELET VOLUME 7.6 FL (7.4-10.4); MONOCYTES # (AUTO) 0.4 X10'3 (0-0.9); MONOCYTES % (AUTO) 5.4 % (2-12); NEUTROPHILS # (AUTO) 5.5 X10'3 (1.8-7.7); NEUTROPHILS % (AUTO) 79.3 % (42-75); PLATELET COUNT 284 X10'3 (140-440); RED BLOOD COUNT 3.92 X10'6 (4.20-5.60); RED CELL DISTRIBUTION WIDTH 13.5 % (11.5-14.5); WHITE BLOOD COUNT 6.9 X10'3 (4.5-11.0)
--- NOTE | 2020-09-16 12:02 | NUR ---
Attempt x 2 to get IV, TOREY vein accessed w/out difficulty, fluids started, pt reports pain and burning, no swelling. IV d/c'ed tip intact.
[2020-09-16] MEDS ORDERED: ondansetron 4mg/5ml UD cup PO ONE (12:05)
[2020-09-16] MEDS ORDERED: HYDROcodone/acetaminophen 5mg/325mg tablet PO ONE (12:05)
[2020-09-16 12:10] LABS: ALANINE AMINOTRANSFERASE 29 U/L (12-78); ALBUMIN 3.8 G/DL (3.4-5.0); ALBUMIN/GLOBULIN RATIO 1.1 (1.1-1.5); ALKALINE PHOSPHATASE 43 IU/L (46-116); ANION GAP 2 (8-16); ASPARTATE AMINO TRANSFERASE 30 U/L (10-37); BILIRUBIN,TOTAL 0.4 MG/DL (0.1-1.0); BLOOD UREA NITROGEN 7 MG/DL (7-18); BUN/CREATININE RATIO 9.6 (6.6-38.0); CALCIUM 8.6 MG/DL (8.5-10.1); CHLORIDE 102 MMOL/L (99-107); CREATININE 0.73 MG/DL (0.40-0.90); GLUCOSE 81 MG/DL (70-104); LIPASE 51 U/L (73-393); SODIUM 135 MMOL/L (135-145); TOTAL CARBON DIOXIDE 31.1 MMOL/L (24-32); TOTAL PROTEIN 7.3 G/DL (6.4-8.2); eGFR 89 ML/MIN
[2020-09-16] MEDS ORDERED: ondansetron 4mg rapidly disintigrating tab PO ONE (12:10)
[2020-09-16 12:14] LABS: POTASSIUM 3.6 MMOL/L (3.5-5.1)
[2020-09-16] MEDS ORDERED: HYDR-3965 PO (12:48)
[2020-09-16] MEDS ORDERED: ONDA4TAB6 PO (12:51)
[2020-09-16] MEDS ORDERED: FLO0.4C PO (12:51)
[2020-09-16 13:02] VITALS: BP 132/86
== END 2020-09-16 13:04 | disposition home or self-care (01) ==
LOC: ER 10:35
DX: N20.0 Calculus of kidney (principal); Z87.442 Personal history of urinary calculi; Z87.440 Personal history of urinary (tract) infections; Z86.79 Personal history of other diseases of the circulatory system; Z90.49 Acquired absence of other specified parts of digestive tract; Z98.891 History of uterine scar from previous surgery; Z90.710 Acquired absence of both cervix and uterus; Z88.6 Allergy status to analgesic agent; Z88.8 Allergy status to other drugs, medicaments and biological substances; Z79.899 Other long term (current) drug therapy
CPT/HCPCS: 36415; 80053; 81001; 81025; 83690; 85025; 99283

== ENCOUNTER 2021-05-30 08:59 | Day surgery (SDC) | payer MEDICAID ==
[2021-05-23 15:29] LABS: BASOPHILS % (AUTO) 0.3 % (0-1); EOSINOPHILS # (AUTO) 0.1 X10'3 (0-0.9); LYMPHOCYTES # (AUTO) 1.3 X10'3 (1.1-4.8); LYMPHOCYTES % (AUTO) 16.4 % (21-51); MEAN CORPUSCULAR HEMOGLOBIN 31.4 PG (27.0-31.0); MEAN CORPUSCULAR HGB CONC 32.7 g/dL (33.0-36.5); MEAN CORPUSCULAR VOLUME 95.9 FL (78-98); MEAN PLATELET VOLUME 6.6 FL (7.4-10.4); MONOCYTES # (AUTO) 0.7 X10'3 (0-0.9); MONOCYTES % (AUTO) 9.1 % (2-12); NEUTROPHILS # (AUTO) 5.7 X10'3 (1.8-7.7); NEUTROPHILS % (AUTO) 73.2 % (42-75); PRE OP HEMATOCRIT 37.4 % (35.0-45.0); PRE OP HEMOGLOBIN 12.2 g/dL (12.0-16.0); PRE OP PLATELET COUNT 359 X10'3 (140-440); RED CELL DISTRIBUTION WIDTH 13.4 % (11.5-14.5)
[2021-05-23 15:41] LABS: PRE OP PROTIME 10.1 SECONDS (9.0-12.0)
[2021-05-23 15:48] LABS: ALBUMIN 3.7 G/DL (3.4-5.0); ALKALINE PHOSPHATASE 67 IU/L (46-116); BLOOD UREA NITROGEN 16 MG/DL (7-18); BUN/CREATININE RATIO 18.6 (6.6-38.0); CALCIUM 8.7 MG/DL (8.5-10.1); CHLORIDE 107 MMOL/L (99-107); CREATININE 0.86 MG/DL (0.40-0.90); PRE OP ALT 30 U/L (30-65); PRE OP ANION GAP 8 (8-16); PRE OP AST 22 U/L (10-37); PRE OP BILIRUB, TOTAL 0.3 MG/DL (0.0-1.0); PRE OP GLUCOSE 92 MG/DL (70-104); PRE OP POTASSIUM 3.8 MMOL/L (3.4-5.1); PRE OP SODIUM 143 MMOL/L (135-145); TOTAL CARBON DIOXIDE 27.7 MMOL/L (24-32); TOTAL PROTEIN 7.3 G/DL (6.4-8.2); eGFR 74 ML/MIN
[2021-05-30] VITALS (8 sets, daily range): BP systolic 135–151; BP diastolic 82–98
[~2021-05-30] VITALS: Ht 154.9 cm; Wt 83.4 kg
[~2021-05-30 08:59] MED LIST changes: -FLO0.4C PO; +NORT75CA PO; +famotidine 20mg tablet PO ONE; +ringers solution, lacted 1,000 ML IV SCH
--- NOTE | 2021-05-30 10:20 | NUR ---
SEVERAL ATTEMPTS TO START IV UNABLE TO. CALL PLACED TO DR OLVERA VERBAL ORDER TO PLACE A EJ EJ STARTED ONE ATTEMPT ADRIÁN WELL, WITH BLOOD FLASH BACK. IVF INFUSING WITHOUT DIFF. Addendum: 05/30/21 at 1054 by Keely Alvarez RN Amended: Links added.
[2021-05-30] MEDS ORDERED: LIDOCAINE 1%/EPI 1:100,000 inj. 10 ML multi-dose vial ONE (12:33)
[2021-05-30] MEDS ORDERED: sevoflurane 250ml liquid IH ONE (12:42)
[2021-05-30] MEDS ORDERED: midazolam 1 mg/ML 2ml injection ONE (12:47)
[2021-05-30] MEDS ORDERED: fentaNYL/PF 50MCG/1 ML 2ML syringe ONE (12:47)
[2021-05-30] MEDS ORDERED: dexamethasone sod phosphate 4mg/ml inj. ONE (12:59)
[2021-05-30] MEDS ORDERED: LIDOcaine 2% (20mg/ml) 5ml vial ONE (12:59)
[2021-05-30] MEDS ORDERED: ondansetron/PF 4mg/2ml inj ONE (12:59)
[2021-05-30] MEDS ORDERED: propofol inj 20 ML IV ONE (12:59)
[2021-05-30] MEDS ORDERED: BUPIVAcaine/PF 2.5mg/ml (0.25%) 10ml vial IJ ONE (13:13)
--- NOTE | 2021-05-30 13:28 | NUR ---
Received from OR via [facility] , accompanied by Anesthesiologist WADE and report given by Anesthesiolgist. PATIENT WITH LEFT 20G PIV IN EJ VEIN RUNNING LR AT 100. NO DRESSINGS, NO DRAINS. PATIENT RESTING COMFORTABLY IN GURNEY. 10L MASK ON WITH 100% SATURATIONS. Addendum: 05/30/21 at 1340 by Simone Weaver RN, RN Amended: Links added.
[2021-05-30] MEDS ORDERED: morphine 2 MG/ML inj. syringe IV PRN (13:35)
[2021-05-30] MEDS ORDERED: meperidine/PF 25mg/ml syringe IV PRN ×3 (13:35)
[2021-05-30] MEDS ORDERED: labetalol 20mg/4ml (5mg/ml) syringe IV PRN (13:35)
[2021-05-30] MEDS ORDERED: ringers solution, lacted 1,000 ML IV SCH (13:35)
[2021-05-30] MEDS ORDERED: morphine 4 MG/ML inj SYRINge IV PRN (13:35)
[2021-05-30] MEDS ORDERED: proCHLORperazine 10 MG/2 ml inj IV PRN (13:35)
[2021-05-30] MEDS ORDERED: ondansetron/PF 4mg/2ml inj IV PRN (13:35)
[2021-05-30] MEDS ORDERED: acetaminophen 1,000mg/100ml IV 100 ML IV PRN (13:35)
[2021-05-30] MEDS ORDERED: hydrALAZINE 20mg/ml inj. IV PRN (13:35)
[2021-05-30] MEDS ORDERED: HYDROcodone/acetaminophen 10/325mg tab PO ONE (13:55)
--- NOTE | 2021-05-30 14:08 | NUR ---
ALL DC CRITERIA FOR HOME HAS BEEN MET. VSS. DENIES PAIN. PATIENT DRESSED WITH FEMALE STUDENT DANGELO FORBES. OUT VIA WHEELCHAIR TO PERSONAL VEHICLE WHERE FRIEND DROVE HER HOME. PATIENT UNDERSTOOD ALL DC INSTRUCTIONS. Addendum: 05/30/21 at 1437 by Simone Weaver RN RN Amended: Links added.
== END 2021-05-30 14:08 | disposition home or self-care (01) ==
LOC: PAS 08:59
PROVIDERS: ATTEND Colon & Rectal Surgery
DX: K62.5 Hemorrhage of anus and rectum (principal); K62.89 Other specified diseases of anus and rectum; K64.8 Other hemorrhoids; K64.4 Residual hemorrhoidal skin tags; K63.89 Other specified diseases of intestine; D68.2 Hereditary deficiency of other clotting factors; E66.9 Obesity, unspecified; Z68.34 Body mass index [BMI] 34.0-34.9, adult; Z20.822 Contact with and (suspected) exposure to COVID-19; Z79.899 Other long term (current) drug therapy; Z87.19 Personal history of other diseases of the digestive system; Z90.710 Acquired absence of both cervix and uterus; Z90.49 Acquired absence of other specified parts of digestive tract; Z98.890 Other specified postprocedural states; Z88.8 Allergy status to other drugs, medicaments and biological substances
CPT/HCPCS: 36415; 45990; 80053; 82948; 85025; 85610; 85730; J1100; J2001; J2250; J2405; J2704; J3010; J3490; U0003; U0005; Z7506; Z7512; A4215; A4402; A4618; A7000; J7120

== ENCOUNTER 2021-09-05 11:29 | Inpatient (IN) | payer MEDICAID ==
[~2021-09-05] VITALS: Ht 154.9 cm; Wt 79.5 kg
[~2021-09-05 11:29] MED LIST changes: -famotidine 20mg tablet PO ONE; -ringers solution, lacted 1,000 ML IV SCH
[2021-09-05] MEDS ORDERED: CefTRIAXone 2gm/D5W 50ml BAG 50 ML IV ONE (11:55)
[2021-09-05] MEDS ORDERED: normal saline 1000ML IV soln IV ONE ×2 (11:55→17:50)
[2021-09-05 12:21] LABS: BASOPHILS # (AUTO) 0.1 X10'3 (0-0.2); BASOPHILS % (AUTO) 0.3 % (0-1); EOSINOPHILS % (AUTO) 0 % (0-6); HEMOGLOBIN 11.9 g/dl (12.0-16.0); LYMPHOCYTES # (AUTO) 0.3 X10'3 (1.1-4.8); LYMPHOCYTES % (AUTO) 0.9 % (21-51); MEAN CORPUSCULAR HEMOGLOBIN 29.3 PG (27.0-31.0); MEAN CORPUSCULAR VOLUME 91.4 FL (78-98); MEAN PLATELET VOLUME 6.9 FL (7.4-10.4); MONOCYTES # (AUTO) 1.1 X10'3 (0-0.9); MONOCYTES % (AUTO) 3.2 % (2-12); NEUTROPHILS # (AUTO) 32.3 X10'3 (1.8-7.7); NEUTROPHILS % (AUTO) 95.6 % (42-75); PLATELET COUNT 342 X10'3 (140-440); RED BLOOD COUNT 4.05 X10'6 (4.20-5.60); RED CELL DISTRIBUTION WIDTH 14.2 % (11.5-14.5)
[2021-09-05 12:22] LABS: URINE HCG NEGATIVE (NEG)
[2021-09-05 12:23] LABS: CLARITY,URINE CLEAR (Clear); COLOR,URINE YELLOW (Yellow); GLUCOSE, URINE NEGATIVE (Neg); KETONES,URINE NEGATIVE (Neg); LEUKOCYTE ESTERASE ,URINE NEGATIVE (Neg); OCCULT BLOOD,URINE NEGATIVE (Neg); PROTEIN,URINE NEGATIVE (Neg); UROBILINOGEN,URINE 0.2 E.U/dL (0.2-1.0)
[2021-09-05 12:25] LABS: WHITE BLOOD COUNT 33.8 X10'3 (4.5-11.0)
[2021-09-05 12:26] LABS: UA COLLECTION TYPE CLN CATCH MIDSTREAM
[2021-09-05 12:33] LABS: D-DIMER 0.98 MG/L FEU (0-0.50)
[2021-09-05 12:41] LABS: ALANINE AMINOTRANSFERASE 32 U/L (12-78); ALBUMIN 2.7 G/DL (3.4-5.0); ALBUMIN/GLOBULIN RATIO 0.6 (1.1-1.5); ALKALINE PHOSPHATASE 167 IU/L (46-116); ANION GAP 14 (8-16); ASPARTATE AMINO TRANSFERASE 28 U/L (10-37); BILIRUBIN,TOTAL 2.2 MG/DL (0.1-1.0); BLOOD UREA NITROGEN 26 MG/DL (7-18); BUN/CREATININE RATIO 12.6 (6.6-38.0); CALCIUM 8.8 MG/DL (8.5-10.1); CHLORIDE 98 MMOL/L (99-107); CREATININE 2.07 MG/DL (0.40-0.90); GLUCOSE 86 MG/DL (70-104); POTASSIUM 3.5 MMOL/L (3.5-5.1); SODIUM 138 MMOL/L (135-145); TOTAL CARBON DIOXIDE 25.7 MMOL/L (24-32); eGFR 27 ML/MIN
[2021-09-05 12:41] LABS: SQUAMOUS EPITHELIAL CELL,UR NONE SEEN /LPF (FEW)
[2021-09-05 12:42] LABS: BACTERIA,URINE NONE SEEN /HPF (Neg); RBC,URINE NONE SEEN /HPF (0-2); WBC,URINE NONE SEEN /HPF (0-4)
[2021-09-05 13:06] LABS: PLATELET ESTIMATE NORMAL; TOTAL CELLS COUNTED 100
[2021-09-05] MEDS ORDERED: ondansetron/PF 4mg/2ml inj IV ONE (13:10)
[2021-09-05] MEDS: morphine 4 MG/ML inj SYRINge IV PRN ×2 (13:30→14:57)
[2021-09-05] MEDS ORDERED: magnesium oxide 400mg tablet PO ONE (15:30)
[2021-09-05] MEDS ORDERED: magnesium 2GM in 50ml NS 50 ML IV ONE (15:30)
[2021-09-05] MEDS ORDERED: azithromycin/NS 500mg/250ml 250 ML IV ONE (17:47)
[2021-09-05 18:22] LABS: BASOPHILS # (AUTO) 0.1 X10'3 (0-0.2); BASOPHILS % (AUTO) 0.2 % (0-1); EOSINOPHILS % (AUTO) 0 % (0-6); HEMATOCRIT 35.3 % (35.0-45.0); HEMOGLOBIN 11.2 g/dl (12.0-16.0); LYMPHOCYTES # (AUTO) 0.3 X10'3 (1.1-4.8); LYMPHOCYTES % (AUTO) 0.9 % (21-51); MEAN CORPUSCULAR HEMOGLOBIN 29.6 PG (27.0-31.0); MEAN CORPUSCULAR HGB CONC 31.9 g/dL (33.0-36.5); MEAN CORPUSCULAR VOLUME 92.7 FL (78-98); MONOCYTES # (AUTO) 0.7 X10'3 (0-0.9); NEUTROPHILS # (AUTO) 32.4 X10'3 (1.8-7.7); NEUTROPHILS % (AUTO) 96.9 % (42-75); PLATELET COUNT 271 X10'3 (140-440); RED CELL DISTRIBUTION WIDTH 14.5 % (11.5-14.5)
[2021-09-05 18:31] LABS: WHITE BLOOD COUNT 33.4 X10'3 (4.5-11.0)
--- NOTE | 2021-09-05 19:01 | NUR ---
ASSUMED CARE OF PATIENT. THIS RN PLACED RIGHT EJ WITH MD AT BEDSIDE. 4TH IV NS UP AND INFUSING WELL AFTER BLOOD DRAW AND SENT TO LAB. PATIENT REMAINS HYPOTENSIVE AND PAINFUL. WILL CTM AND PLACE SECOND EJ PER MD ORDER
[2021-09-05 19:16] LABS: ALANINE AMINOTRANSFERASE 24 U/L (12-78); ALBUMIN/GLOBULIN RATIO 0.6 (1.1-1.5); ALKALINE PHOSPHATASE 125 IU/L (46-116); ANION GAP 14 (8-16); ASPARTATE AMINO TRANSFERASE 20 U/L (10-37); BILIRUBIN,TOTAL 1.1 MG/DL (0.1-1.0); BLOOD UREA NITROGEN 30 MG/DL (7-18); BUN/CREATININE RATIO 18.6 (6.6-38.0); CHLORIDE 103 MMOL/L (99-107); CREATININE 1.61 MG/DL (0.40-0.90); GLUCOSE 76 MG/DL (70-104); POTASSIUM 3.8 MMOL/L (3.5-5.1); SODIUM 136 MMOL/L (135-145); TOTAL CARBON DIOXIDE 19.5 MMOL/L (24-32); TOTAL PROTEIN 5.4 G/DL (6.4-8.2); eGFR 36 ML/MIN
[2021-09-05 19:27] LABS: ABG BASE EXCESS -6.5 mmol/L (-2.0-2.0); ABG HCO3 18.2 mmol/L (22.0-26.0); ABG OXYGEN SATURATION 90.9 % (94-97); ABG PCO2 (T) 32.5 mmHg (32.0-45.0); ABG PO2 (T) 57.5 mmHg (75.0-100.0); ALLEN'S TEST POSITIVE; FCOHb 0.7 % (0.0-3.9); FMetHb 0.3 % (0.0-1.5); PATIENT TEMPERATURE 36.4; TOTAL HEMOGLOBIN 10.7 G/dl (12.0-16.0)
[2021-09-05 19:28] LABS: CREATINE KINASE 36 U/L (26-192)
[2021-09-05] MEDS ORDERED: normal saline 1000ML IV soln IVB ONE (19:55)
[2021-09-05] MEDS ORDERED: NORepinephrine 8mg/ 250ml NS 250 ML IV PRN (19:55)
[2021-09-05] MEDS ORDERED: LORazepam 2 mg/ml vial IV ONE (20:30)
[2021-09-05] MEDS ORDERED: ringers solution, lacted 1,000 ML IV SCH (21:00)
[2021-09-05] MEDS ORDERED: acetaminophen 325mg tablet PO PRN ×2 (21:05)
[2021-09-05] MEDS ORDERED: ondansetron/PF 4mg/2ml inj IV PRN (21:05)
[2021-09-05] MEDS ORDERED: magnesium hydroxide 30ml (MOM) UD suspension PO PRN (21:05)
[2021-09-05 21:37] LABS: BASOPHILS # (AUTO) 0.1 X10'3 (0-0.2); BASOPHILS % (AUTO) 0.3 % (0-1); EOSINOPHILS # (AUTO) 0.1 X10'3 (0-0.9); EOSINOPHILS % (AUTO) 0.2 % (0-6); HEMATOCRIT 31.7 % (35.0-45.0); HEMOGLOBIN 10.4 g/dl (12.0-16.0); LYMPHOCYTES # (AUTO) 0.5 X10'3 (1.1-4.8); LYMPHOCYTES % (AUTO) 1.3 % (21-51); MEAN CORPUSCULAR HGB CONC 32.7 g/dL (33.0-36.5); MEAN CORPUSCULAR VOLUME 91.6 FL (78-98); MEAN PLATELET VOLUME 6.7 FL (7.4-10.4); MONOCYTES # (AUTO) 1.3 X10'3 (0-0.9); MONOCYTES % (AUTO) 3.2 % (2-12); NEUTROPHILS # (AUTO) 36.8 X10'3 (1.8-7.7); PLATELET COUNT 270 X10'3 (140-440); RED BLOOD COUNT 3.46 X10'6 (4.20-5.60); RED CELL DISTRIBUTION WIDTH 14.3 % (11.5-14.5)
[2021-09-05 21:47] LABS: WHITE BLOOD COUNT 38.8 X10'3 (4.5-11.0)
[2021-09-05] MEDS ORDERED: pantoprazole 40MG/NS 100ML BAG 100 ML IV ONE (21:55)
[2021-09-05 21:56] LABS: APTT 36 SECONDS (22-32); D-DIMER 2.04 MG/L FEU (0-0.50)
[2021-09-05 21:57] LABS: PLATELET COUNT 270 X10'3 (140-440)
[2021-09-05 21:59] LABS: TOTAL CELLS COUNTED 100
[2021-09-05 22:00] LABS: PLATELET ESTIMATE NORMAL
[2021-09-05] MEDS: hydrocortisone sod succ/PF 100mg/2ml inj. IV SCH (22:14)
[2021-09-05 23:06] LABS: URINE AMPHETAMINE SCREEN NEGATIVE (Neg); URINE BARBITUATE SCREEN NEGATIVE (Neg); URINE BENZODIAZEPINES SCREEN NEGATIVE (Neg); URINE CANNABINOID SCREEN NEGATIVE (Neg); URINE COCAINE SCREEN NEGATIVE (Neg); URINE METHADONE SCREEN NEGATIVE (Neg); URINE OPIATE SCREEN NEGATIVE (Neg); URINE PHENCYCLIDINE SCREEN NEGATIVE (Neg)
[2021-09-06] VITALS (8 sets, daily range): BP systolic 92–125; BP diastolic 61–77
[2021-09-06] MEDS ORDERED: metroNIDAZOLE-Flagyl 500mg/NS 100 ML IV SCH
[2021-09-06] MEDS: morphine 4 MG/ML inj SYRINge IV PRN ×5 (00:38→23:56)
[2021-09-06] MEDS: metroNIDAZOLE-Flagyl 500mg/NS 100 ML IV SCH ×2 (00:51→09:29)
[2021-09-06 01:26] LABS: BASOPHILS % (AUTO) 0.1 % (0-1); EOSINOPHILS % (AUTO) 0.1 % (0-6); HEMATOCRIT 32.5 % (35.0-45.0); HEMOGLOBIN 10.7 g/dl (12.0-16.0); LYMPHOCYTES # (AUTO) 0.4 X10'3 (1.1-4.8); MEAN CORPUSCULAR HEMOGLOBIN 29.9 PG (27.0-31.0); MEAN CORPUSCULAR VOLUME 90.5 FL (78-98); MEAN PLATELET VOLUME 7.2 FL (7.4-10.4); MONOCYTES # (AUTO) 1.1 X10'3 (0-0.9); MONOCYTES % (AUTO) 2.7 % (2-12); NEUTROPHILS # (AUTO) 39.9 X10'3 (1.8-7.7); NEUTROPHILS % (AUTO) 96.1 % (42-75); PLATELET COUNT 295 X10'3 (140-440); RED BLOOD COUNT 3.59 X10'6 (4.20-5.60); RED CELL DISTRIBUTION WIDTH 14.7 % (11.5-14.5)
[2021-09-06 01:50] LABS: ALANINE AMINOTRANSFERASE 25 U/L (12-78); ALBUMIN 2.1 G/DL (3.4-5.0); ALBUMIN/GLOBULIN RATIO 0.6 (1.1-1.5); ALKALINE PHOSPHATASE 150 IU/L (46-116); ANION GAP 13 (8-16); ASPARTATE AMINO TRANSFERASE 23 U/L (10-37); BLOOD UREA NITROGEN 31 MG/DL (7-18); BUN/CREATININE RATIO 24.8 (6.6-38.0); CALCIUM 7.2 MG/DL (8.5-10.1); CHLORIDE 105 MMOL/L (99-107); CREATININE 1.25 MG/DL (0.40-0.90); GLUCOSE 69 MG/DL (70-104); MAGNESIUM 1.6 MG/DL (1.5-2.4); SODIUM 137 MMOL/L (135-145); TOTAL PROTEIN 5.9 G/DL (6.4-8.2); eGFR 48 ML/MIN
[2021-09-06 01:51] LABS: WHITE BLOOD COUNT 41.5 X10'3 (4.5-11.0)
[2021-09-06] MEDS: hydrocortisone sod succ/PF 100mg/2ml inj. IV SCH ×3 (02:32→15:22)
[2021-09-06] MEDS: HYDROcodone/acetaminophen 5mg/325mg tablet PO PRN ×2 (02:44→09:28)
--- NOTE | 2021-09-06 07:30 | NUR ---
Patient in room ED 6. I have received report from Brock OATES and had the opportunity to ask questions and assume patient care.
[2021-09-06] MEDS ORDERED: pantoprazole 40MG/NS 100ML BAG 100 ML IV SCH ×2 (08:00)
[2021-09-06] MEDS: K and/or MAG REPLACEMENT MC SCH ×2 (08:40→19:41)
--- NOTE | 2021-09-06 10:27 | NUR ---
Rounds Pts condition reviewed with team. Abx changes to be initiated. Explained changes to pt and her who's at bedside. provided pt with a ricki this am
[2021-09-06] MEDS ORDERED: HYDR-3972 PO (10:30)
[2021-09-06] MEDS ORDERED: NORT50CA PO (10:30)
--- NOTE | 2021-09-06 12:24 | NUR ---
Initial: Pt admit w/ increased SOB DX sepsis, PNA, dehydration, acute renal failure, and hypomagnesemia per EMR. MAP 80 this AM currently NPO though pt brought in [facility] for pt this AM per RN. Glu 106mg/dl up from 69 prior this AM per EMR. Will monitor for PO diet advancement, PO tolerance, and nutrition intervention needs this admit. Rec: 1. advance diet as medically indicated to regular 2. monitor for PO trends and ONS needs 3. routine bowel care 4. scaled wt this admit; subsequent weekly wts Addendum: 09/06/21 at [address] Amended: Links added.
--- NOTE | 2021-09-06 14:53 | NUR ---
Vaccines. Pt will talk to PMD about vaccines due to Angel davey.
[2021-09-06] MEDS: CefTRIAXone/D5W-Rocephin 1gm 50 ML IV SCH (15:51)
[2021-09-06] MEDS: AZITHROMYCIN 500 MG in NS 250ml IV.SOLN IV SCH (15:51)
--- NOTE | 2021-09-06 16:45 | NUR ---
Nausea Pt w/sudden nausea, cold, clamy. Emesis bag provided and warm blanket. at bedside. C/o pain at back. Pt with productive cough now.
--- NOTE | 2021-09-06 18:32 | NUR ---
Problems reprioritized. Patient report given, questions answered & plan of care reviewed with Quita OATES.
[2021-09-06] MEDS: HYDROcodone/acetaminophen 10/325mg tab PO PRN (18:36)
--- NOTE | 2021-09-06 19:09 | NUR ---
Patient in room ICU 2041. I have received report from Bobby OATES and had the opportunity to ask questions and assume patient care.
--- NOTE | 2021-09-06 19:36 | NUR ---
PATIENT ARRIVED TO FLOOR
[2021-09-06] MEDS: enoxaparin 40mg/0.4ml syringe SQ SCH (19:49)
[2021-09-07 02:00] VITALS: BP 112/72
[2021-09-07] MEDS: HYDROcodone/acetaminophen 10/325mg tab PO PRN ×3 (03:17→20:14)
[2021-09-07] MEDS: morphine 4 MG/ML inj SYRINge IV PRN ×5 (05:04→23:01)
[2021-09-07 06:00] VITALS: BP 116/72
--- NOTE | 2021-09-07 06:40 | NUR ---
Problems reprioritized. Patient report given, questions answered & plan of care reviewed with VALDO OATES.
--- NOTE | 2021-09-07 06:41 | NUR ---
Patient in room MED 317. I have received report from KERWIN OATES and had the opportunity to ask questions and assume patient care.
--- NOTE | 2021-09-07 07:21 | NUR ---
Patient in room MED 317. I have received report from LASHON MUKHERJEE, and had the opportunity to ask questions and assume patient care.
[2021-09-07 08:08] LABS: BASOPHILS # (AUTO) 0.1 X10'3 (0-0.2); BASOPHILS % (AUTO) 0.2 % (0-1); EOSINOPHILS % (AUTO) 0.1 % (0-6); HEMATOCRIT 29.6 % (35.0-45.0); HEMOGLOBIN 9.9 g/dl (12.0-16.0); LYMPHOCYTES # (AUTO) 1.4 X10'3 (1.1-4.8); LYMPHOCYTES % (AUTO) 4.3 % (21-51); MEAN CORPUSCULAR HEMOGLOBIN 29.9 PG (27.0-31.0); MEAN CORPUSCULAR HGB CONC 33.3 g/dL (33.0-36.5); MEAN CORPUSCULAR VOLUME 89.9 FL (78-98); MEAN PLATELET VOLUME 7.2 FL (7.4-10.4); MONOCYTES # (AUTO) 1.3 X10'3 (0-0.9); MONOCYTES % (AUTO) 3.9 % (2-12); NEUTROPHILS % (AUTO) 91.5 % (42-75); PLATELET COUNT 249 X10'3 (140-440); RED BLOOD COUNT 3.29 X10'6 (4.20-5.60); RED CELL DISTRIBUTION WIDTH 14.7 % (11.5-14.5)
[2021-09-07 08:17] LABS: WHITE BLOOD COUNT 31.7 X10'3 (4.5-11.0)
[2021-09-07 08:21] LABS: ALANINE AMINOTRANSFERASE 18 U/L (12-78); ALBUMIN 1.7 G/DL (3.4-5.0); ALBUMIN/GLOBULIN RATIO 0.4 (1.1-1.5); ALKALINE PHOSPHATASE 126 IU/L (46-116); ANION GAP 8 (8-16); ASPARTATE AMINO TRANSFERASE 27 U/L (10-37); BILIRUBIN,TOTAL 0.3 MG/DL (0.1-1.0); BLOOD UREA NITROGEN 20 MG/DL (7-18); BUN/CREATININE RATIO 30.3 (6.6-38.0); CALCIUM 7.8 MG/DL (8.5-10.1); CHLORIDE 110 MMOL/L (99-107); CREATININE 0.66 MG/DL (0.40-0.90); GLUCOSE 77 MG/DL (70-104); MAGNESIUM 2.4 MG/DL (1.5-2.4); POTASSIUM 3.2 MMOL/L (3.5-5.1); SODIUM 143 MMOL/L (135-145); TOTAL CARBON DIOXIDE 25.2 MMOL/L (24-32); TOTAL PROTEIN 5.7 G/DL (6.4-8.2); eGFR > 90 ML/MIN
--- NOTE | 2021-09-07 08:22 | NUR ---
PAGE SENT PAGER ID: [phone] MESSAGE: [id number], ANA SINGLETON, CRITICAL LAB - 31.6. THANK YOU KERWIN Hernandez [id number]
[2021-09-07] MEDS: nortriptyline 25mg capsule PO SCH (08:28)
[2021-09-07 10:00] VITALS: BP 123/78
[2021-09-07 10:25] LABS: PLATELET ESTIMATE NORMAL; TOTAL CELLS COUNTED 100
[2021-09-07] MEDS ORDERED: furosemide 40mg/4ml inj IV ONE (11:35)
[2021-09-07] MEDS: CefTRIAXone/D5W-Rocephin 1gm 50 ML IV SCH (12:38)
--- NOTE | 2021-09-07 14:10 | NUR ---
PAGE SENT PAGER ID: [phone] MESSAGE: [id number], ANA SINGLETON, NEEDS ELECTROLYTE PROTOCOL PLEASE. K 3.2. THANK YOU KERWIN Hernandez [id number]
[2021-09-07 15:00] VITALS: BP 125/68
[2021-09-07] MEDS ORDERED: potassium Cl 40MEQ/1/2NS 520ml 520 ML IV PRN (16:40)
[2021-09-07] MEDS ORDERED: magnesium Cl slow-release 64mg tablet PO PRN (16:40)
[2021-09-07] MEDS ORDERED: magnesium 4gm in 100ml NS 100 ML IV PRN (16:40)
[2021-09-07] MEDS ORDERED: potassium Cl 20 mEq SR tablet PO PRN (16:40)
[2021-09-07] MEDS: potassium Cl 20 mEq SR tablet PO PRN ×2 (16:49→23:00)
--- NOTE | 2021-09-07 18:02 | NUR ---
Patient in room MED 317. I have received report from KERWIN OATES and had the opportunity to ask questions and assume patient care.
--- NOTE | 2021-09-07 18:43 | NUR ---
Problems reprioritized. Patient report given, questions answered & plan of care reviewed with LASHON MUKHERJEE.
[2021-09-07 18:47] VITALS: BP 118/83
[2021-09-07] MEDS: K and/or MAG REPLACEMENT MC SCH (20:00)
[2021-09-07] MEDS: AZITHROMYCIN 500 MG in NS 250ml IV.SOLN IV SCH (20:08)
[2021-09-07] MEDS: lactobacillus rhamnosus 10,000 MMU CELLS/CAPSULE PO SCH (20:10)
[2021-09-07] MEDS: enoxaparin 40mg/0.4ml syringe SQ SCH (20:11)
[2021-09-07 22:00] VITALS: BP 120/66
[2021-09-08] VITALS (7 sets, daily range): BP systolic 115–128; BP diastolic 73–84
[2021-09-08] MEDS ORDERED: guaiFENesin/codeine phos 10ml UD oral syrup PO PRN (02:05)
[2021-09-08] MEDS: guaiFENesin/codeine phos 10ml UD oral syrup PO PRN ×3 (02:39→23:30)
[2021-09-08] MEDS: morphine 4 MG/ML inj SYRINge IV PRN ×5 (03:45→22:07)
[2021-09-08 06:43] LABS: BASOPHILS % (AUTO) 0.2 % (0-1); EOSINOPHILS # (AUTO) 0.1 X10'3 (0-0.9); EOSINOPHILS % (AUTO) 0.3 % (0-6); HEMATOCRIT 30.2 % (35.0-45.0); LYMPHOCYTES # (AUTO) 1.1 X10'3 (1.1-4.8); LYMPHOCYTES % (AUTO) 6.2 % (21-51); MEAN CORPUSCULAR HEMOGLOBIN 29.6 PG (27.0-31.0); MEAN CORPUSCULAR HGB CONC 33.1 g/dL (33.0-36.5); MEAN CORPUSCULAR VOLUME 89.3 FL (78-98); MEAN PLATELET VOLUME 7.2 FL (7.4-10.4); MONOCYTES # (AUTO) 1.4 X10'3 (0-0.9); MONOCYTES % (AUTO) 8.1 % (2-12); NEUTROPHILS # (AUTO) 15.2 X10'3 (1.8-7.7); NEUTROPHILS % (AUTO) 85.2 % (42-75); PLATELET COUNT 261 X10'3 (140-440); RED BLOOD COUNT 3.39 X10'6 (4.20-5.60); WHITE BLOOD COUNT 17.8 X10'3 (4.5-11.0)
--- NOTE | 2021-09-08 06:44 | NUR ---
Problems reprioritized. Patient report given, questions answered & plan of care reviewed with RIK OATES.
[2021-09-08 06:56] LABS: ALANINE AMINOTRANSFERASE 20 U/L (12-78); ALBUMIN 1.9 G/DL (3.4-5.0); ALBUMIN/GLOBULIN RATIO 0.5 (1.1-1.5); ALKALINE PHOSPHATASE 139 IU/L (46-116); ANION GAP 6 (8-16); ASPARTATE AMINO TRANSFERASE 19 U/L (10-37); BILIRUBIN,TOTAL 0.3 MG/DL (0.1-1.0); BLOOD UREA NITROGEN 14 MG/DL (7-18); BUN/CREATININE RATIO 24.6 (6.6-38.0); CALCIUM 7.7 MG/DL (8.5-10.1); CHLORIDE 103 MMOL/L (99-107); CREATININE 0.57 MG/DL (0.40-0.90); GLUCOSE 86 MG/DL (70-104); MAGNESIUM 1.8 MG/DL (1.5-2.4); SODIUM 138 MMOL/L (135-145); TOTAL PROTEIN 5.8 G/DL (6.4-8.2); eGFR > 90 ML/MIN
[2021-09-08] MEDS: K and/or MAG REPLACEMENT MC SCH ×3 (07:15→20:00)
[2021-09-08 07:29] LABS: PLATELET ESTIMATE NORMAL; TOTAL CELLS COUNTED 100
[2021-09-08] MEDS: nortriptyline 25mg capsule PO SCH (07:52)
[2021-09-08] MEDS: lactobacillus rhamnosus 10,000 MMU CELLS/CAPSULE PO SCH ×2 (07:52→19:46)
[2021-09-08] MEDS: HYDROcodone/acetaminophen 10/325mg tab PO PRN ×3 (09:44→23:30)
[2021-09-08] MEDS ORDERED: furosemide 40mg/4ml inj IV ONE (12:10)
[2021-09-08] MEDS: CefTRIAXone/D5W-Rocephin 1gm 50 ML IV SCH (12:36)
--- NOTE | 2021-09-08 15:57 | NUR ---
pt c/o of back sensitivity and pain along with pain in chest from coughing and head pain. at bedside, pt given 2 tabs of norco and cough syrup. pt refused to take all 3 cups of the cough syrup. only took about 1 1/2 cups.
--- NOTE | 2021-09-08 18:20 | NUR ---
Problems reprioritized. Patient report given, questions answered & plan of care reviewed with Topher OATES.
[2021-09-08] MEDS: enoxaparin 40mg/0.4ml syringe SQ SCH (19:46)
[2021-09-08] MEDS: AZITHROMYCIN 500 MG in NS 250ml IV.SOLN IV SCH (19:46)
[2021-09-09 02:00] VITALS: BP 118/79
[2021-09-09] MEDS: morphine 4 MG/ML inj SYRINge IV PRN ×5 (03:41→22:07)
[2021-09-09 06:00] VITALS: BP 118/83
[2021-09-09 07:03] LABS: ALANINE AMINOTRANSFERASE 18 U/L (12-78); ALBUMIN 1.7 G/DL (3.4-5.0); ALBUMIN/GLOBULIN RATIO 0.4 (1.1-1.5); ALKALINE PHOSPHATASE 117 IU/L (46-116); ANION GAP 8 (8-16); ASPARTATE AMINO TRANSFERASE 22 U/L (10-37); BILIRUBIN,TOTAL 0.3 MG/DL (0.1-1.0); BLOOD UREA NITROGEN 14 MG/DL (7-18); BUN/CREATININE RATIO 21.5 (6.6-38.0); CALCIUM 8.2 MG/DL (8.5-10.1); CHLORIDE 104 MMOL/L (99-107); CREATININE 0.65 MG/DL (0.40-0.90); GLUCOSE 117 MG/DL (70-104); MAGNESIUM 1.8 MG/DL (1.5-2.4); POTASSIUM 3.4 MMOL/L (3.5-5.1); SODIUM 140 MMOL/L (135-145); TOTAL CARBON DIOXIDE 28.4 MMOL/L (24-32); TOTAL PROTEIN 5.8 G/DL (6.4-8.2); eGFR > 90 ML/MIN
[2021-09-09] MEDS: lactobacillus rhamnosus 10,000 MMU CELLS/CAPSULE PO SCH ×2 (07:12→19:43)
[2021-09-09] MEDS: nortriptyline 25mg capsule PO SCH (07:13)
[2021-09-09] MEDS: HYDROcodone/acetaminophen 10/325mg tab PO PRN ×3 (07:14→19:42)
[2021-09-09] MEDS: guaiFENesin/codeine phos 10ml UD oral syrup PO PRN (07:19)
[2021-09-09] MEDS: potassium Cl 20 mEq SR tablet PO PRN ×3 (07:24→16:30)
[2021-09-09] MEDS: K and/or MAG REPLACEMENT MC SCH ×2 (08:55→20:00)
--- NOTE | 2021-09-09 09:27 | NUR ---
Reassessment: Pt advanced to regular diet PO ~81% avg meals meeting estimated needs. LBM 09/08 per EMR. No nutrition intervention at this time. Will continue to monitor. Rec: 1. continue regular diet 2. routine bowel care 3. scaled wt this admit; subsequent weekly wts Addendum: 09/09/21 at [address] Amended: Links added.
[2021-09-09 10:00] VITALS: BP 101/74
[2021-09-09 11:48] LABS: BASOPHILS % (AUTO) 0.2 % (0-1); EOSINOPHILS % (AUTO) 0.4 % (0-6); HEMATOCRIT 33.2 % (35.0-45.0); HEMOGLOBIN 10.9 g/dl (12.0-16.0); LYMPHOCYTES # (AUTO) 1.1 X10'3 (1.1-4.8); LYMPHOCYTES % (AUTO) 10.1 % (21-51); MEAN CORPUSCULAR HEMOGLOBIN 29.2 PG (27.0-31.0); MEAN CORPUSCULAR HGB CONC 32.8 g/dL (33.0-36.5); MEAN CORPUSCULAR VOLUME 89.3 FL (78-98); MEAN PLATELET VOLUME 7.5 FL (7.4-10.4); MONOCYTES # (AUTO) 1.7 X10'3 (0-0.9); MONOCYTES % (AUTO) 16.1 % (2-12); NEUTROPHILS # (AUTO) 7.8 X10'3 (1.8-7.7); NEUTROPHILS % (AUTO) 73.2 % (42-75); PLATELET COUNT 291 X10'3 (140-440); RED BLOOD COUNT 3.72 X10'6 (4.20-5.60); RED CELL DISTRIBUTION WIDTH 15.3 % (11.5-14.5); WHITE BLOOD COUNT 10.7 X10'3 (4.5-11.0)
[2021-09-09] MEDS: CefTRIAXone/D5W-Rocephin 1gm 50 ML IV SCH (12:14)
[2021-09-09 12:21] LABS: PLATELET ESTIMATE NORMAL; TOTAL CELLS COUNTED 100
[2021-09-09 14:00] VITALS: BP 124/78
[2021-09-09] MEDS: cyclobenzaprine 10mg tablet PO PRN (16:30)
[2021-09-09 18:00] VITALS: BP 98/68
[2021-09-09] MEDS: AZITHROMYCIN 500 MG in NS 250ml IV.SOLN IV SCH (19:44)
[2021-09-09] MEDS: enoxaparin 40mg/0.4ml syringe SQ SCH (19:44)
[2021-09-09 22:00] VITALS: BP 118/74
[2021-09-10] MEDS: cyclobenzaprine 10mg tablet PO PRN ×2 (00:54→10:30)
[2021-09-10 02:00] VITALS: BP 133/92
[2021-09-10] MEDS: HYDROcodone/acetaminophen 10/325mg tab PO PRN ×3 (02:11→12:15)
[2021-09-10] MEDS: morphine 4 MG/ML inj SYRINge IV PRN ×3 (05:40→14:16)
[2021-09-10 06:00] VITALS: BP 130/93
[2021-09-10 06:08] LABS: BASOPHILS % (AUTO) 0.2 % (0-1); EOSINOPHILS # (AUTO) 0.1 X10'3 (0-0.9); EOSINOPHILS % (AUTO) 0.8 % (0-6); HEMOGLOBIN 9.7 g/dl (12.0-16.0); LYMPHOCYTES # (AUTO) 1.4 X10'3 (1.1-4.8); LYMPHOCYTES % (AUTO) 12.4 % (21-51); MEAN CORPUSCULAR HGB CONC 33.4 g/dL (33.0-36.5); MEAN CORPUSCULAR VOLUME 89.6 FL (78-98); MEAN PLATELET VOLUME 6.9 FL (7.4-10.4); MONOCYTES # (AUTO) 1.4 X10'3 (0-0.9); MONOCYTES % (AUTO) 12.9 % (2-12); NEUTROPHILS % (AUTO) 73.7 % (42-75); PLATELET COUNT 344 X10'3 (140-440); RED BLOOD COUNT 3.24 X10'6 (4.20-5.60); RED CELL DISTRIBUTION WIDTH 15.1 % (11.5-14.5); WHITE BLOOD COUNT 10.9 X10'3 (4.5-11.0)
--- NOTE | 2021-09-10 06:20 | NUR ---
received report from cooper, rn
[2021-09-10 06:30] LABS: ALANINE AMINOTRANSFERASE 17 U/L (12-78); ALBUMIN 1.8 G/DL (3.4-5.0); ALBUMIN/GLOBULIN RATIO 0.4 (1.1-1.5); ALKALINE PHOSPHATASE 107 IU/L (46-116); ANION GAP 9 (8-16); ASPARTATE AMINO TRANSFERASE 19 U/L (10-37); BILIRUBIN,TOTAL 0.3 MG/DL (0.1-1.0); BLOOD UREA NITROGEN 15 MG/DL (7-18); BUN/CREATININE RATIO 24.2 (6.6-38.0); CALCIUM 8.3 MG/DL (8.5-10.1); CHLORIDE 104 MMOL/L (99-107); CREATININE 0.62 MG/DL (0.40-0.90); GLUCOSE 90 MG/DL (70-104); MAGNESIUM 1.7 MG/DL (1.5-2.4); POTASSIUM 3.9 MMOL/L (3.5-5.1); SODIUM 140 MMOL/L (135-145); TOTAL CARBON DIOXIDE 27.1 MMOL/L (24-32); TOTAL PROTEIN 6.1 G/DL (6.4-8.2); eGFR > 90 ML/MIN
[2021-09-10] MEDS: lactobacillus rhamnosus 10,000 MMU CELLS/CAPSULE PO SCH (07:03)
[2021-09-10] MEDS: nortriptyline 25mg capsule PO SCH (07:04)
[2021-09-10] MEDS: K and/or MAG REPLACEMENT MC SCH (07:05)
[2021-09-10] MEDS: guaiFENesin/codeine phos 10ml UD oral syrup PO PRN (10:31)
[2021-09-10 11:00] VITALS: BP 110/74
[2021-09-10] MEDS: CefTRIAXone/D5W-Rocephin 1gm 50 ML IV SCH (12:16)
--- NOTE | 2021-09-10 12:18 | NUR ---
okayed admin of pain meds early due to pt elevated pain level, continue to monitor
[2021-09-10] MEDS ORDERED: LACT1CAP26 PO (13:48)
[2021-09-10] MEDS ORDERED: HYDR-3965 PO (13:48)
[2021-09-10] MEDS ORDERED: CEFD300C3 PO (13:48)
[2021-09-10] MEDS ORDERED: ALBU8.5H17 INH (13:48)
--- NOTE | 2021-09-10 14:48 | NUR ---
pt d/c with instructions, understanding of instructions, and w/all belongings in wheelchair accompanied by nursing staff to private vehicle to f/u w/pcp
== END 2021-09-10 14:32 | disposition home or self-care (01) | DRG 720 ==
LOC: ER 11:30 → ED HOLD 21:12 → ICU 2S 09-06 08:46 → MED 3N 09-06 19:44
PROVIDERS: ADMIT Internal Medicine; ATTEND Internal Medicine
DX: A41.9 Sepsis, unspecified organism (principal); N17.0 Acute kidney failure with tubular necrosis; R65.21 Severe sepsis with septic shock; G93.41 Metabolic encephalopathy; J18.9 Pneumonia, unspecified organism; D68.51 Activated protein C resistance; Z20.822 Contact with and (suspected) exposure to COVID-19; E86.0 Dehydration; G89.4 Chronic pain syndrome; F15.90 Other stimulant use, unspecified, uncomplicated; M48.00 Spinal stenosis, site unspecified; E83.42 Hypomagnesemia; F32.A Depression, unspecified; K50.90 Crohn's disease, unspecified, without complications; Z87.442 Personal history of urinary calculi; Z90.710 Acquired absence of both cervix and uterus; Z56.0 Unemployment, unspecified; Z88.8 Allergy status to other drugs, medicaments and biological substances; Z90.49 Acquired absence of other specified parts of digestive tract; Z98.51 Tubal ligation status; Z79.899 Other long term (current) drug therapy; E87.6 Hypokalemia
CPT/HCPCS: 36415; 36600; 71045; 80053; 80305; 81001; 81025; 82550; 82553; 82803; 82948; 83605; 83690; 83735; 83874; 84145; 85007; 85018; 85025; 85379; 85384; 85610; 85730; 87040; 87070; 87502; 87503; 87635; 96365; 96366; 96367; 96368; 96375; 99291; 99292; C9113; C9803; G0378; J0456; J0696; J1650; J1720; J1940; J2060; J2270; J2405; J3475; J3490; J7030; J7120

== ENCOUNTER 2023-05-01 00:52 | Emergency (ER) | payer MEDICAID ==
[~2023-05-01] VITALS: Ht 154.9 cm; Wt 79.2 kg
[~2023-05-01 00:52] MED LIST changes: +ALBU8.5H17 INH; -HYDR-3965 PO; +LACT1CAP26 PO; +NORT50CA PO; -NORT75CA PO
[2023-05-01 00:55] VITALS: BP 133/91; PULSE 93; RESP 16; O2SAT 100
[2023-05-01 01:20] VITALS: TEMP 98.1
== END 2023-05-01 01:24 | disposition home or self-care (01) ==
LOC: ER 00:52
DX: M54.50 Low back pain, unspecified (principal); F15.90 Other stimulant use, unspecified, uncomplicated; Z88.6 Allergy status to analgesic agent; Z79.899 Other long term (current) drug therapy; Z90.49 Acquired absence of other specified parts of digestive tract; Z90.710 Acquired absence of both cervix and uterus; Z98.51 Tubal ligation status
CPT/HCPCS: 99281